=== PATIENT | male | born 1990 | race African-American/Black ===

== ENCOUNTER 2020-01-11 11:53 | Emergency (ER) | payer BC, SELFPAY ==
--- NOTE | ~2020-01-11 | XR_ITS ---
XR knee RT min 4V DATE: 01/11/2020 12:30 INDICATION: Fall 2 weeks ago. Right knee pain. TECHNIQUE: 4 views including crosstable lateral COMPARISON: None FINDINGS: There are multiple calcifications overlying the distal quadriceps muscle and tendon, which may represent avulsion fractures from the superior pole of the patella. There is soft tissue swelling in this area. Suprapatellar knee joint effusion is suggested. No other fracture or any dislocation is detected. No radiopaque intra-articular loose body or chondro calcinosis. There is mild loss of height of the medial compartment joint space. IMPRESSION: Probable avulsion fractures of the superior pole of the patella and possible knee joint e ffusion Reviewed, dictated and finalized at location A. IMPRESSION: Probable avulsion fractures of the superior pole of the patella and possible knee joint effusion
[2020-01-11 12:10] VITALS: BP 131/82; PULSE 101; RESP 16; TEMP 36.6; O2SAT 100
--- NOTE | 2020-01-11 12:24 | ED.GENADULT ---
HPI - General Adult General Chief complaint: Extremity Injury, Lower Stated complaint: Fall Right Knee pain Time Seen by Provider: 01/11/20 12:16 Source: patient and RN notes reviewed Mode of arrival: ambulatory Limitations: no limitations History of Present Illness HPI narrative: 29-year-old -[place] male presents with complains of right diffused anterior knee pain and swelling for 14 days. Intermittent ice and Ibuprofen (on day 1 only) no relief. Ray says he stepped out of his car unsure if he stepped into a ditch or not and fell forward unsure if he hit his knee. No radiation of pain. No numbness or tingling, or bleeding. No loss of mobility. Exacerbating factor consist of bearing weight, palpation, and manipulation. No fever or chills. Denies nausea, vomiting, and abdominal pain. Tolerating po intake well. Denies headaches, weakness, fatigue, myalgia, or facial swelling. Denies chest pain or dyspnea. Denies cough, rhinorrhea, congestion, sore throat. Denies recent traveling. Denies concerns for COVID-19 or exposures been home since [id number] order except for essential household needs, working, and returned home. Remains active. Some parts of this dictation were generated by voice recognition software and may contain typographical and/or grammatical inaccuracies. Related Data Home Medications Medication Instructions Recorded Confirmed No Home Medications 01/11/20 01/11/20 Allergies Allergy/AdvReac Type Severity Reaction Status Date / Time No Known Allergies Allergy Verified 01/11/20 12:09 Review of Systems Review of Systems: Narrative: CONSTITUTIONAL: Denies fever, chills, sweats. EYES: Denies visual changes, redness, discharge. ENT: Denies rhinorrhea, congestion, sore throat, otalgia. CARDIOVASCULAR: Denies chest pain, palpitations, edema. RESPIRATORY: Denies dyspnea, wheezing, cough. GASTROINTESTINAL: Denies abdominal pain, nausea, vomiting, diarrhea. GENITOURINARY: Denies dysuria, hematuria, abnormal discharge SKIN: Denies rash or itching. MUSCULOSKELETAL: Denies acute back pain or myalgia. Complains of Right diffused anterior knee pain and swelling. NEUROLOGIC: Denies numbness, or focal weakness. PSYCHIATRIC: Denies anxiety or depression. All other systems reviewed & are unremarkable except as noted in HPI and below. [facility] [place] Past Medical History Medical History (Updated 01/11/20 @ 13:07 by COLT Jackson) No significant past medical history Surgical History Surgical History (Updated 01/11/20 @ 12:27 by COLT Jackson) No significant past surgical history Family History Family History (Updated 01/11/20 @ 12:27 by COLT Jackson) Father Alive and well Mother Alive and well Social History Social History (Updated 01/11/20 @ 12:28 by COLT Jackson) Smoking status: Never smoker Alcohol intake: current Substance use: never Gender identity (if verbalized by the patient): Male Comments At time of signature, agree with nurse past medical, surgical, social, and family history. There is no relevant family history pertinent to the presenting complaint. Exam Narrative: Exam Narrative: GENERAL: This is a well-nourished, well-developed patient, in no apparent distress. Talks in full sentences and ambulates with RT antalgic gait without crutches and no weight bearing with crutches (came in with them) without dyspnea. HEAD: normocephalic, atraumatic. EYES: PERRL. Sclera clear/white. Vision is grossly intact. CARDIOVASCULAR: Regular rate and rhythm without murmurs, gallops, or rubs. RESPIRATORY: Clear to auscultation. Breath sounds equal bilaterally. No wheezes, rales, or rhonchi. GASTROINTESTINAL: Abdomen soft, non-tender, nondistended. Bowel sounds are active. No hepato-splenomegaly, or palpable masses. No guarding. SKIN: warm, intact with no suspicious lesions or rash, good texture and turgor. NEURO: awake, alert, and oriented to
== END 2020-01-11 13:20 | disposition home or self-care (01) ==
PROVIDERS: Emergency Provider Nurse Practitioner Family
DX: S82.091A Other fracture of right patella, initial encounter for closed fracture (principal); R03.0 Elevated blood-pressure reading, without diagnosis of hypertension; W18.39XA Other fall on same level, initial encounter
CPT/HCPCS: 73564; 99204; G0463; L1830

== ENCOUNTER 2020-01-29 11:58 | Outpatient (CLI) | payer BC, SELFPAY ==
--- NOTE | ~2020-01-29 | MR_ITS ---
EXAMINATION: MR knee RT wo con DATE: 01/29/2020 14:01 INDICATION: Right knee pain post injury TECHNIQUE: Magnetic resonance imaging (MRI) of the right knee was performed without intravenous contr ast. Sequences included coronal PD-weighted FSE, coronal PD-weighted FS FSE, sagittal T2-weighted FS E, sagittal PD-weighted FS FSE and axial PD weighted fat saturated FSE. COMPARISON: None. FINDINGS: Medial compartment: Medial meniscus is normal. Articular cartilage is normal. Lateral compartment: Lateral meniscus is normal. Articular cartilage is normal. Patellofemoral compartment: Articular cartilage is normal. Ligaments and tendons: Anterior and posterior cruciate ligaments are normal. The medial collateral ligament and fibular rhea ateral ligament complex are normal. There is a full-thickness tear of the distal quadriceps tendon wh ich appears to spare the portion of the tendon arising from the vastus lateralis. There is subtle sha llow concavity to the cephalad margin of the patella without underlying marrow edema which could repr esent either the donor site for associated avulsion fracture with small subtle calcific densities at the site of the retracted tear margin on the prior radiographs. Alternatively the calcific lesions at the distal tear margin could represent either heterotopic ossification related to chronic enthesopat hy or earlier trauma or avulsed secondary apophyseal centers in the setting of developmental variant bipartite patella. There is a small amount residual frayed tendon material remaining attached to the superior margin of the patella. The central portion of the tendon arising from the rectus femoris and vastus intermedialis is retracted approximately 3.5 cm from the cephalad margin of the patella. Ther e is patella baja with laxity of the more distal patellar tendon. The visualized medial and lateral h amstring tendons as well as the iliotibial band are normal. Fluid: Complex hematoma at the tendon tear defect. Physiologic amount of fluid in the joint space. No loose osteochondral bodies identified. IMPRESSION: 1. Near complete tear of the distal quadriceps tendon which appears to spare the portion of the tendo n arising from the vastus lateralis. Reviewed, dictated and finalized at location A. IMPRESSION: 1. Near complete tear of the distal quadriceps tendon which appears to spare th e portion of the tendon arising from the vastus lateralis.
== END 2020-01-29 11:59 | disposition home or self-care (01) ==
PROVIDERS: Visit Provider Orthopaedic Surgery
DX: S76.111A Strain of right quadriceps muscle, fascia and tendon, initial encounter (principal); X58.XXXA Exposure to other specified factors, initial encounter
CPT/HCPCS: 73721

== ENCOUNTER 2020-02-13 00:28 | Outpatient (CLI) | payer BC, SELFPAY ==
[2020-02-13 16:46] LABS: SARS-CoV-2 RNA PCR Negative
== END 2020-02-13 00:29 | disposition home or self-care (01) ==
LOC: ANHCOVIDDT 00:29
PROVIDERS: Visit Provider Orthopaedic Surgery
DX: Z01.818 Encounter for other preprocedural examination (principal); Z11.59 Encounter for screening for other viral diseases
CPT/HCPCS: 87635; C9803; U0003

== ENCOUNTER 2020-02-16 00:54 | Day surgery (SDC) | payer BC, SELFPAY ==
[2020-02-08 16:42] VITALS: BMI 39.9
[2020-02-16] VITALS (10 sets, daily range): BP systolic 117–146; BP diastolic 63–77; PULSE 72–107; RESP 12–20; TEMP 36.2–36.4; O2SAT 93–100
[2020-02-16] MEDS: LACTATED RINGERS 1,000 ML 30 ML IV CONT ×2 (06:30→10:00)
[2020-02-16] MEDS: CELECOXIB 200 MG CAPSULE PO (06:45)
--- NOTE | 2020-02-16 06:55 | WPDANESEPPF ---
Anes - Initial Pre Proc Eval Procedure: Operation Date: 02/16/20 07:30 Proposed Procedures p Right Quadricep Tendon Repair - Ben Norton MD Date/Time: 02/16/20 06:55 Surgeon: Ben Norton MD Pre Op Diagnosis: Right Quadricep Tendon Tear Patient Data Age: 29 Gender: M Height: 5 ft 9 in Weight: 122.47 kg Allergies Allergy/AdvReac Type Severity Reaction Status Date / Time No Known Allergies Allergy Verified 02/16/20 06:54 Home Medications Medication Instructions Recorded Confirmed Type chlorhexidine gluconate 4 % 1 applic TOPICAL ONCE #237 ml 02/08/20 02/16/20 Rx topical liquid ibuprofen 400 mg PO Q6H PRN 02/08/20 02/16/20 History Patient hx anesthesia problems: none Family hx anesthesia problems: none PMFSH Past Medical History Medical History No significant past medical history Surgical History Surgical History No significant past surgical history Family History Family History Father Alive and well Mother Alive and well Social History Social History Smoking status: Never smoker Alcohol intake: current Substance use: never Gender identity (if verbalized by the patient): Male Anes - Eval Final PreProcedure Day of Procedure 02/16/20 06:55 Patient weight: morbidly obese Heart: regular rate and rhythm Lungs: clear to auscultation Airway: Mallampati scale class II Neurological: alert and oriented Last oral intake: >/= 8 hours ASA classification: III Emergent: no Anesthetic plan: proceed Anesthesia type and monitoring: general LMA and standard monitoring Informed Consent: The patient's anesthetic plan and its attendant risks and benefits were discussed with the patient/family/POA. Questions were solicited and answers provided to the satisfaction of the patient/family/POA.
--- NOTE | 2020-02-16 07:37 | WPDHPUPDATE1 ---
History and Physical Update Update Date/Time: 02/16/20 07:37 History and Physical has been reviewed, including an updated exam of the patient. There are NO changes in the patient's condition. Risks, benefits, and alternatives have been discussed and questions answered. Patient agrees to proceed with procedure.
[2020-02-16] MEDS: ceFAZolin 3 GM/D5W 100 ML 100 ML IVPB (07:43)
--- NOTE | 2020-02-16 08:01 | WPDANESPNB ---
Anes - Peripheral Nerve Block Date/Time: 02/16/20 08:01 I have discussed with the patient/family/POA the placement of a peripheral nerve block for post-operative pain management, including associated risks, benefits, complications, and side effects. Alternative methods of post-operative analgesia were detailed. Questions were solicited and answers provided to the satisfaction of the patient/family/POA. Time-Out: A pre-procedural Time-Out was completed immediately before starting the procedure and confirmed: Patient Identification, Site, Procedure, Patient Position and the Availability of Requisite Equipment. Clinical Indications: Acute post-operative pain management requested by the operative surgeon. Nerve Block Insertion Note Anes-nerve block: femoral right Patient position: supine Skin prep: chlorhexidine Needle: 22 gauge, stimulating, insulated echogenic needle. Needle length: 80 mm Technique: nerve stimulation lost at (mA) (0.21) Technique comment: done in OR Injectate: bupivacaine 0.5% with epi 5 mcg/ml (30ml) Observations: tolerated well Complications: none Procedure start time:: 754 Procedure end time:: 757
--- NOTE | 2020-02-16 09:57 | PM.OP ---
Procedure Note - Brief Procedure Note - Brief Date of procedure: 02/16/20 Pre-op diagnosis: Right Quadricep Tendon Tear Post-op diagnosis: same Procedure performed: RIGHT QUADRICEPS REPAIR Anesthesia: GETA Surgeon: Ben Norton MD Estimated blood loss (mL): 20 Drains: No Complications: No immediate complications Condition: stable Disposition: PACU
--- NOTE | 2020-02-16 14:25 | OP_ITS ---
DATE OF PROCEDURE: 02/16/2020 PREOPERATIVE DIAGNOSIS: Right quadriceps tear. POSTOPERATIVE DIAGNOSIS: Right quadriceps tear. PROCEDURE: Repair of right quadriceps tendon. ANESTHESIA: General. COMPLICATION: None. INDICATIONS: This is a 29-year-old male who fell approximately 6 weeks ago and had weakness and pain in the in the right knee region. He eventually came to the [facility] office and was diagnosed after an MRI with quadriceps tear. He was indicated for right quadriceps repair. DESCRIPTION OF PROCEDURE: The patient was taken to the operative room in stable condition, placed in supine position. General anesthesia was induced and the right lower extremity was prepped and draped sterilely from the toes to the mid thigh region. Tourniquet was inflated. Incision was made over the knee and distal thigh down to the subcutaneous tissues until the fascia layer was identified. There was a large defect in the quadriceps tendon and the medial retinaculum as well as the lateral retinaculum. There was minimal scar tissue that was adherent to the superolateral pole of the patella, which was not very good tissue. The incision continued down to the distal pole of the patella to the proximal edge of the patellar tendon. Debridement was performed of some devitalized scar tissue. The knee joint was irrigated thoroughly with antibiotic solution and then using a #5 Ethibond suture, a modified Alburnett weave was performed using 2 double headed #5 Ethibond sutures. Four strands of suture then exited through the distal part of the quadriceps tendon. Three drill holes were placed through the patella and the #5 sutures were run through the holes in the patella. Two strands were placed in the middle hole and 1 in each medial and lateral hole. The knee was placed in full extension and then the sutures were tied at the distal pole of the patella. The repair was excellent. The repair was reinforced with #2 Ethibond along the medial and lateral retinaculum and also #1 Vicryl. The wound was irrigated thoroughly again and then subcutaneous tissue was approximated with 2-0 Vicryl. The skin was approximated with 3-0 Quill braided type absorbable suture and then Steri-Strips were placed after Dermabond was dried, and then Mepilex dressing was applied and then, a knee immobilizer applied. The patient then was extubated, sent to Recovery. John I MT: Beckie
== END 2020-02-16 12:10 | disposition home or self-care (01) ==
PROVIDERS: Visit Provider Orthopaedic Surgery
PROC: (CPT 27385; principal; 2020-02-16 07:30)
DX: S76.111A Strain of right quadriceps muscle, fascia and tendon, initial encounter (principal); W19.XXXA Unspecified fall, initial encounter; E66.01 Morbid (severe) obesity due to excess calories; Z68.41 Body mass index [BMI] 40.0-44.9, adult
CPT/HCPCS: 27385; A9270; J0131; J0690; J1100; J2250; J2405; J2704; J3010; J7120; L1830